=== PATIENT | male | born 1950 | race Caucasian/White ===

== ENCOUNTER 2017-09-01 08:43 | Outpatient (CLI) | payer BC ==
--- NOTE | 2017-09-01 12:09 | CT ---
CT ABDOMEN AND PELVIS WITHOUT IV CONTRAST: Date: 09/01/17 HISTORY: Hemochromatosis, liver transplant, abdominal pain, nausea, and diarrhea. Liver transplant was perform ed in 2008. No IV contrast administered due to a GFR of 18 and creatinine of 3.4. FINDINGS: Absence of IV contrast reduces the sensitivity of exam, particularly for evaluation of solid organs. A small right pleural effusion is seen. There is a small amount of free fluid in the abdomen or pelvi s. The spleen measures 12.0 cm in length with a few calcified granulomas. The spleen measured 21.0 cm on 01/03/09. No free air is seen in the abdomen. No pancreatic calcifications are identified. No torsten culi noted in the kidneys, ureters, or the urinary bladder. No hydroureteronephrosis seen on either s felicitas. There is prominence of the urinary bladder wall which may be due to wall thickening or incomplet e distention. The small bowel loops are not abnormally dilated. There are degenerative changes in the spine. No kajal dence of aneurysmal dilatation of the abdominal aorta is seen. IMPRESSION: 1. Small right pleural effusion. 2. Mild ascites. 3. No bowel obstruction. 4. Prominent bladder wall. Wall thickening versus incomplete distention. POS: [facility]
== END 2017-09-01 08:44 | disposition home or self-care (01) ==
LOC: BICCT 08:43 → CT 08:44
PROVIDERS: ATTEND Internal Medicine Gastroenterology
DX: R10.33 Periumbilical pain (principal); R11.2 Nausea with vomiting, unspecified; J90 Pleural effusion, not elsewhere classified; R18.8 Other ascites
CPT/HCPCS: 74176; 82565

== ENCOUNTER 2019-07-17 19:31 | Observation (INO) | payer BC ==
[2019-07-17] MEDS ORDERED: hydrALAZINE 20 MG/ML VIAL ONE (20:46)
--- NOTE | 2019-07-17 20:48 | RAD ---
XR Chest 1 View Portable HISTORY: Dyspnea COMPARISON: 11/14/2013 FINDINGS: The heart size is normal. The aorta is tortuous. The lungs are well expanded without focal areas of consolidation, pneumothorax or pleural effusions. IMPRESSION: No radiographic evidence of acute cardiopulmonary process.
[2019-07-17 20:51] LABS: #Eosinphils 0.1 thou/uL (0.0-0.7); #Lymphocytes 1.6 thou/uL (1.20-3.40); #Monocytes 0.4 thou/uL (0.11-0.59); #Neutrophils 3.9 thou/uL (1.40-6.50); %Basophils 0.6 % (0.0-1.0); %Eosinophils 1.2 % (0.0-10.0); %Lymphocytes 26.4 % (21.0-51.0); %Monocytes 6.9 % (0.0-10.0); Hemoglobin 15.5 g/dL (14.0-18.0); Mean Corpuscular HGB CONC 35.6 g/dL (32.0-36.0); Mean Corpuscular Hemoglobin 38.9 pg (27.0-31.0); Mean Platelet Volume 7.3 fL (7.4-10.4); Platelet Count 146 thou/uL (130-400); RBC Distribution Width 13.4 % (11.5-14.5); Red Blood Cell (RBC) Count 3.99 mill/uL (4.70-6.10); White Blood Cell (WBC) Count 6.1 thou/uL (4.8-10.8)
--- NOTE | 2019-07-17 20:56 | CT ---
CT BRAIN WITHOUT CONTRAST: HISTORY: Headache FINDINGS: There are changes of chronic small vessel ischemic disease in the periventricular white matter. No ev idence of acute infarct, hemorrhage, midline shift or abnormal extra-axial fluid collections is seen. The ventricular size is appropriate and the basilar cisterns are patent. The bony calvarium is intact. There is mucosal retention cyst versus polyp in the right maxillary sinus. IMPRESSION: No CT evidence of acute intracranial process.
[2019-07-17 21:10] LABS: MDiff Complete? YES; Macrocytosis MODERATE=16-30 cells (100X) (0-5/hpf); Platelet Morphology Comment Appears Adequate; Polychromasia SLIGHT = 2-3 cells (100X) (0-2/hpf)
[2019-07-17 21:48] LABS: Albumin 4.1 g/dL (3.4-4.8)
[2019-07-17 21:49] LABS: Chloride 102 mmol/L (98-107); Potassium 3.7 mmol/L (3.5-5.1)
[2019-07-17 21:50] LABS: Calcium 9.3 mg/dL (7.8-10.44); Sodium 137 mmol/L (136-145)
[2019-07-17 21:51] LABS: Glucose 115 mg/dL (80-115); Protein, Total 7.1 g/dL (5.8-8.1)
[2019-07-17 21:52] LABS: Anion Gap 17 mmol/L (10-20); Carbon Dioxide 22 mmol/L (23-31)
[2019-07-17 21:53] LABS: Bilirubin, Total 1.4 mg/dL (0.2-1.2)
[2019-07-17 21:54] LABS: Alkaline Phosphatase 89 U/L (40-110); Calc. Creatinine Clearance 0 mL/min (70-130); Estimated GFR-MDRD 54
[2019-07-17 21:55] LABS: BUN (Urea Nitrogen) 21 mg/dL (8.4-25.7)
[2019-07-17 21:56] LABS: AST (SGOT) 23 U/L (5-34)
[2019-07-17 21:57] LABS: ALT (SGPT) 16 U/L (8-55); CK (CPK) 247 U/L (30-200); Lipase 17 U/L (8-78)
[2019-07-17] MEDS ORDERED: Aspirin Chewable 81 MG TAB ONE (22:42)
[2019-07-18] MEDS ORDERED: Lorazepam 2 MG/ML VIAL ONE (00:03)
[2019-07-18] MEDS ORDERED: hydrALAZINE 20 MG/ML VIAL SLOW IVP PRN (00:04)
[2019-07-18 00:08] LABS: Troponin I 0.017 ng/mL (< 0.028)
[2019-07-18] MEDS ORDERED: ALPRAZolam 0.5 MG TAB PO SCH (00:15)
[2019-07-18] MEDS ORDERED: Acetaminophen 325 MG TAB PO PRN (00:18)
[2019-07-18] MEDS ORDERED: Ondansetron PF 4 MG/2 ML Vial IVP PRN (00:18)
[2019-07-18] MEDS ORDERED: Ondansetron ODT 4 MG TAB PO PRN (00:18)
[2019-07-18] MEDS ORDERED: Acetaminophen 650 MG Suppository PR PRN (00:18)
--- NOTE | 2019-07-18 01:25 | HP ---
TIME OF ASSESSMENT: 2300 hours. CHIEF COMPLAINT: Elevated blood pressure and headache. HISTORY OF PRESENT ILLNESS: Mr. Bethea is a 69-year-old gentleman with a history of hypertension and migraines, who presented to the emergency department due to severe headache associated with nausea and vomiting. The patient apparently developed a sudden severe headache around noon. He states the headache persisted despite taking [id number] medications and he began to have nausea with vomiting. Denies any vision disturbances or associated dizziness. No numbness or weakness. States he suffers from migraines and this did feel similar to the migraines he has had in the past. He states he has been having more frequent headaches in the last week. The patient also reports feeling very anxious and was worried about his blood pressure, which prompted him to come in. At initial presentation, the patient was noted to have an elevated blood pressure of 211/123. This improved to 157/106 after being treated with hydralazine. He was given 324 mg of aspirin. EKG was done in the emergency department, which showed a normal sinus rhythm with a heart rate of 77. Apparently, the patient was cleared for discharge home. However, he did not feel comfortable going home. Therefore, he was referred for admission and continued observation. PAST MEDICAL HISTORY: 1. Hypertension. 2. Migraines. 3. History of liver transplant. PAST SURGICAL HISTORY: 1. Liver transplant. 2. Appendectomy. SOCIAL HISTORY: The patient denies any tobacco use, alcohol consumption, or illicit drug use. ALLERGIES: PENICILLIN. CURRENT MEDICATIONS: Unknown. PHYSICAL EXAMINATION: GENERAL: The patient was found sleeping comfortably on the stretcher in the ER and in no acute distress. Easily awoken. VITAL SIGNS: Temperature 97.8, pulse 78, blood pressure 157/106, respirations 18, O2 saturation 97% on room air. HEENT: Normocephalic and atraumatic. Pupils are equal, round, and reactive to light. Sclerae icterus. Oropharynx is clear. NECK: Supple. No lymphadenopathy. LUNGS: Clear to auscultation bilaterally without any wheezes, rales, or rhonchi. CARDIAC: Regular rate and rhythm without audible murmurs, rubs, or gallops. ABDOMEN: Soft, nontender, nondistended. Normoactive bowel sounds present. No guarding or rigidity. No renal angle tenderness. EXTREMITIES: No lower leg swelling or edema. NEUROLOGIC: Alert and oriented x3. No neuro deficits on exam. SKIN: Warm and dry. IMAGING DATA: 1. Chest x-ray obtained, July 17, 2019. No radiographic evidence of acute cardiopulmonary process. 2. CT of the brain obtained on July 17, 2019. No CT evidence of acute intracranial process. LABORATORY DATA: White count 6.1, hemoglobin 15.5, hematocrit 43.5, platelets 146, neutrophils 65%. Sodium 137, potassium 3.7, BUN 21, creatinine 1.32, GFR 54, glucose 115, total bilirubin 1.4, AST 23, ALT was 16, alkaline phosphatase 89, CK 247. Troponin negative x2. BNP 82.9. Albumin 4.1. Lipase 17. TSH 1.4249. IMPRESSION AND PLAN: Mr. Bethea is a 69-year-old gentleman, who presents with hypertensive urgency that improved following treatment with hydralazine. He reports feeling anxious about his blood pressure being that high, therefore did not feel comfortable going home despite blood pressure improving. Anxiety may be contributing to elevated BP, will give Alprazolam 0.5 mg PO x 1. Continued observation and BP monitoring. The patient states he has a very mild headache at this present time, which he rates 2/10 in severity No complaints. Resume home medications once verified. Continue PRN anti- hypertensives. Gastrointestinal prophylaxis with famotidine. DVT prophylaxis: patient is ambulatory. Code status full. Surrogate decision maker is his son, Luciano Btehea. Case discussed with Dr. Coelho, who agrees with the plan of care as described above. Job ID: [id number] MTDD
[2019-07-18 02:56] LABS: #Basophils 0.1 thou/uL (0.0-0.2); #Lymphocytes 1.3 thou/uL (1.20-3.40); #Monocytes 0.4 thou/uL (0.11-0.59); #Neutrophils 4.3 thou/uL (1.40-6.50); %Basophils 1.1 % (0.0-1.0); %Eosinophils 0.3 % (0.0-10.0); %Lymphocytes 21.5 % (21.0-51.0); %Monocytes 6.1 % (0.0-10.0); Hemoglobin 14.3 g/dL (14.0-18.0); Mean Corpuscular HGB CONC 35.5 g/dL (32.0-36.0); Mean Corpuscular Hemoglobin 38.9 pg (27.0-31.0); Mean Platelet Volume 7.4 fL (7.4-10.4); Platelet Count 142 thou/uL (130-400); RBC Distribution Width 13.4 % (11.5-14.5); Red Blood Cell (RBC) Count 3.69 mill/uL (4.70-6.10); White Blood Cell (WBC) Count 6.1 thou/uL (4.8-10.8)
[2019-07-18] MEDS ORDERED: hydrALAZINE 20 MG/ML VIAL ONE (03:11)
[2019-07-18 03:19] LABS: Troponin I 0.032 ng/mL (< 0.028)
[2019-07-18 03:21] LABS: Anion Gap 17 mmol/L (10-20); BUN (Urea Nitrogen) 21 mg/dL (8.4-25.7); Calc. Creatinine Clearance 0 mL/min (70-130); Calcium 9.3 mg/dL (7.8-10.44); Carbon Dioxide 20 mmol/L (23-31); Chloride 102 mmol/L (98-107); Estimated GFR-MDRD 58; Glucose 111 mg/dL (80-115); Potassium 3.5 mmol/L (3.5-5.1); Sodium 135 mmol/L (136-145)
[2019-07-18 07:07] VITALS: BMI 24.5
[2019-07-18] MEDS ORDERED: Famotidine/PF 20 mg/2ml Vial SLOW IVP SCH (09:00)
[2019-07-18 12:10] VITALS: BP 146/105; TEMP 98
--- NOTE | 2019-07-18 22:55 | DIS ---
DATE OF ADMISSION: 07/17/2019 DATE OF DISCHARGE: 07/18/2019 FOLLOWUP: Follow up with Dr. Omar Figueroa next week. ALLERGIES: PATIENT IS ALLERGIC TO PENICILLIN. DISCHARGE MEDICATIONS: 1. Carvedilol 3.125 b.i.d. 2. Clonidine as needed. Patient was seen and examined on the day of discharge. Denies any new complaints. No chest pain, shortness of breath, or palpitations reported. BRIEF HOSPITAL COURSE: Patient is a 69-year-old male with hypertension, presented to the emergency room with headache along with elevated blood pressure. His blood pressure at the emergency room was 211/123. He received anti-anxiolytic as well as IV hydralazine in the emergency room. His blood pressure improved. His blood pressure this morning was 128/85. He was advised to continue carvedilol. A prescription for clonidine was provided. I discussed with the patient's primary business objects report developer, Dr. Omar Figueroa. Patient will benefit from an outpatient Cardiology evaluation. He was advised to monitor blood pressure on a daily basis. FINAL DIAGNOSES: 1. Hypertensive urgency, resolved. 2. Headache secondary to hypertensive urgency. 3. History of hypertension. 4. History of migraine. 5. History of liver transplant. 6. Abnormal LFTs probably due to history of liver transplant. 7. Type 2 myocardial infarction, present on admission. 8. Chronic kidney disease, stage 3. 9. Macrocytosis. An outpatient evaluation with vitamin B12 and folic acid will be beneficial. Job ID: [id number]
== END 2019-07-18 12:24 | disposition home or self-care (01) ==
LOC: ERS 19:31 → ERHOLD 23:07 → 2SW 23:11
PROVIDERS: ADMIT Internal Medicine Sleep Medicine; ATTEND Internal Medicine
DX: I16.0 Hypertensive urgency (principal); G43.909 Migraine, unspecified, not intractable, without status migrainosus; I12.9 Hypertensive chronic kidney disease with stage 1 through stage 4 chronic kidney disease, or unspecified chronic kidney disease; N18.3 Chronic kidney disease, stage 3 (moderate); I21.A1 Myocardial infarction type 2; D75.89 Other specified diseases of blood and blood-forming organs; Z79.899 Other long term (current) drug therapy; Z88.0 Allergy status to penicillin; Z94.4 Liver transplant status
CPT/HCPCS: 36415; 70450; 71045; 80048; 80053; 82550; 83690; 83880; 84443; 84484; 85025; 93005; 96361; 96374; 96375; G0378; J0360; J2060